=== PATIENT | male | born 1945 | race Caucasian/White ===

== ENCOUNTER 2016-02-15 17:16 | Emergency (ER) | payer MEDICARE ==
[2016-02-19 09:30] VITALS: BMI 22.2
== END 2016-02-15 19:30 | disposition left against medical advice (07) ==
LOC: D.ER 17:16
DX: R30.0 Dysuria (principal)

== ENCOUNTER 2016-02-17 14:54 | Observation (INO) | payer MEDICARE ==
[~2016-02-17] VITALS: Ht 177.8 cm; Wt 69.1 kg
[2016-02-17 15:51] LABS: BASOPHILS 0.1 % (0.0-2.0); HEMOGLOBIN 12.6 g/dL (13.5-17.5); IMMATURE GRANULOCYTES 0.4 % (0-5); LYMPHOCYTES 15.2 % (15-50); MCH 32.1 pg (26.0-34.0); MCHC 34.1 g/dL (31.0-37.0); MCV 94.1 fL (80.0-100.0); MEAN PLATELET VOLUME 9.4 fL (7.4-10.4); MONOCYTES 7.9 % (2-11); NEUTROPHILS 75.4 % (40-80); PLATELET COUNT 156 10x3/uL (130-400); RBC 3.93 10x6/uL (4.20-6.10); RDW 12.9 % (11.5-14.5); WBC 8.3 10x3/uL (4.8-10.8)
[2016-02-17 16:04] LABS: UDS - AMPHET NEGATIVE QUAL (NEGATIVE); UDS - BARB NEGATIVE QUAL (NEGATIVE); UDS - BENZO NEGATIVE QUAL (NEGATIVE); UDS - COCAINE NEGATIVE QUAL (NEGATIVE); UDS - METH NEGATIVE QUAL (NEGATIVE); UDS - OPIATE NEGATIVE QUAL (NEGATIVE); UDS - PCP NEGATIVE QUAL (NEGATIVE); UDS - THC NEGATIVE QUAL (NEGATIVE)
[2016-02-17 16:17] LABS: ALBUMIN 4.1 g/dL (3.4-5.0); ANION GAP 12.8 mmol/L (8-16); BILIRUBIN - TOTAL 0.67 mg/dL (0.2-1.3); CALCIUM 9.1 mg/dL (8.5-10.1); CARBON DIOXIDE 29.7 mmol/L (21.0-32.0); CREATININE - SERUM 2.1 mg/dL (0.6-1.3); POTASSIUM - SERUM 4.5 mmol/L (3.5-5.1); PROTEIN - SERUM 6.4 g/dL (6.4-8.2)
[2016-02-17 17:21] LABS: COLOR YELLOW (YELLOW)
[2016-02-17 17:22] LABS: APPEARANCE CLEAR (CLEAR); BILIRUBIN NEGATIVE (NEGATIVE); GLUCOSE NEGATIVE (NEGATIVE); KETONE NEGATIVE (NEGATIVE); LEUKOCYTE ESTERASE NEGATIVE (NEGATIVE); NITRITE NEGATIVE (NEGATIVE); PROTEIN TRACE mg/dL (NEGATIVE); UROBILINOGEN NORMAL (NORMAL)
[2016-02-17 19:53] LABS: ANION GAP 11.1 mmol/L (8-16); CALCIUM 8.6 mg/dL (8.5-10.1); CARBON DIOXIDE 29.1 mmol/L (21.0-32.0); CREATININE - SERUM 1.8 mg/dL (0.6-1.3); POTASSIUM - SERUM 4.2 mmol/L (3.5-5.1)
[2016-02-17 23:30] VITALS: BP 101/68; BP 102/74; Ht 177.8 cm; Wt 69.1 kg
--- NOTE | 2016-02-17 23:30 | NUR ---
PT REC'D TO ROOM 2305 VIA WHEELCHAIR FROM ER, AWAKE, ALERT, ORIENTED X 4, O2 @ 2LITERS VIA NC, LEFT A/C PIV WITH NS @ 100CC/HR, LEFT ELBOW WITH SCAB/SORE AREA, BANDAID APPLIED, PT MAEE, CM-SR, BP STABLE, WILL MONITOR CLOSELY FOR CHANGES, SR UP X 2, CALL LIGHT IN REACH.
[2016-02-17] MEDS ORDERED: PROGRAF0.5 M1 PO (23:31)
[2016-02-17] MEDS ORDERED: K-TAB10 MEQ PO (23:32)
[2016-02-17] MEDS ORDERED: FLORINEF 0.1 M0.1 MG PO ×2 (23:33→23:39)
[2016-02-17] MEDS ORDERED: VALTREX500 MG PO (23:33)
[2016-02-17] MEDS ORDERED: MIDODRINE HCL5 MG PO (23:33)
[2016-02-17] MEDS ORDERED: MYFORTIC180 MG PO (23:34)
[2016-02-17] MEDS ORDERED: EVOXAC30 MG PO (23:34)
[2016-02-17] MEDS ORDERED: NIASPAN500 MG PO (23:35)
[2016-02-17] MEDS ORDERED: TYLENOL PM1 TAB PO (23:36)
[2016-02-17] MEDS ORDERED: COLACE100 MG PO (23:36)
[2016-02-17] MEDS ORDERED: CALCIUM 500 + D1 TAB PO (23:37)
[2016-02-17] MEDS ORDERED: MULTIPLE VITAMI1 TA1 PO (23:37)
[2016-02-17] MEDS ORDERED: LIDODERM 5 %1 PATCH TRANSDERM (23:38)
[2016-02-17 23:45] VITALS: BP 103/71
[2016-02-18] VITALS (23 sets, daily range): BP systolic 73–152; BP diastolic 47–97
--- NOTE | 2016-02-18 | NUR ---
PT REQUESTING SOMETHING TO DRINK, DIET COLA PROVIDED, DENIES FURTHER NEEDS.
--- NOTE | 2016-02-18 02:00 | NUR ---
SBP DECREASED TO 70'S AND 80'S, PT AWAKENS EASILY, CM-SR @ 79, WILL MONITOR CLOSELY FOR CHANGES.
--- NOTE | 2016-02-18 03:00 | NUR ---
PT ASSISTED UP TO BSC VOIDED AND HAD LIQUID BM, ADULT BRIEF PROVIDED, PT DENIES PAIN OR OTHER NEEDS.
--- NOTE | 2016-02-18 05:00 | NUR ---
PT ASSISTED UP TO BSC PT HAD SMALL LOOSE BROWN STOOL, PT ASSISTED BACK TO BED, DENIES PAIN OR NEEDS, SR UP X 2, CALL LIGHT IN REACH.
[2016-02-18 05:42] LABS: BASOPHILS 0.2 % (0.0-2.0); EOSINOPHILS 1.6 % (0-7); HEMATOCRIT 32.9 % (42.0-54.0); HEMOGLOBIN 11.1 g/dL (13.5-17.5); LYMPHOCYTES 25.1 % (15-50); MCH 32.4 pg (26.0-34.0); MCHC 33.7 g/dL (31.0-37.0); MCV 95.9 fL (80.0-100.0); MEAN PLATELET VOLUME 9.3 fL (7.4-10.4); NEUTROPHILS 61.1 % (40-80); RBC 3.43 10x6/uL (4.20-6.10); RDW 13.2 % (11.5-14.5)
[2016-02-18 05:59] LABS: PLATELET COUNT 108 10x3/uL (130-400); WBC 5.7 10x3/uL (4.8-10.8)
[2016-02-18 06:22] LABS: ANION GAP 12.6 mmol/L (8-16); CALCIUM 8.4 mg/dL (8.5-10.1); CARBON DIOXIDE 25.6 mmol/L (21.0-32.0); CREATININE - SERUM 1.6 mg/dL (0.6-1.3); POTASSIUM - SERUM 4.2 mmol/L (3.5-5.1)
--- NOTE | 2016-02-18 06:30 | NUR ---
DR. BOYD ON UNIT, NEW ORDERS REC'D.
[2016-02-18 07:25] LABS: ALBUMIN 3.3 g/dL (3.4-5.0); BILIRUBIN - TOTAL 0.39 mg/dL (0.2-1.3); PROTEIN - SERUM 5.6 g/dL (6.4-8.2)
--- NOTE | 2016-02-18 08:00 | NUR ---
SHIFT ASSESSMENT VIA FLOWSHEET, SEE FOR DETAILS.
--- NOTE | 2016-02-18 08:39 | NUR ---
Is the patient Alert and Oriented? Yes 0 * How many steps to enter\exit or inside your home? 1 0 * PCP DR. WEISS 0 * Pharmacy [facility] [place] * Preadmission Environment Home with Family 0 * ADLs Independent 0 * Equipment Rolling Walker 0 * List name and contact numbers for known caregivers / representatives who currently or will assist patient after discharge: SPOUSE: ALVIN [phone] * Community resources currently utilized None 0 * Additional services required to return to the preadmission environment? Yes 0 * Can the patient safely return to the preadmission environment? No 0 * Has this patient been hospitalized within the prior 30 days at any hospital? No PATIENT IS ADMITTED TO THE ICU POST SUICIDAL GESTURE. HE TOOK GABAPENTIN IN ATTEMPT TO KILL HIMSELF. PATIENT STATES HE IS AGREEABLE TO GO TO CARE. HE STATES HE HAS TO HAVE A BLOOD TEST ON MONDAY RELATED TO HIS PREVIOUS LIVER TRANSPLANT. PATIENT STATES HE LIVES AT HOME WITH HIS , ALVIN. HIS PCP IS DR. WEISS. HE GET[place] [facility] [place]. PATIENT STATES HE HAS A WALKER HE USES OCCASIONALLY. HE HAD HOME HEALTH IN THE PAST FROM [facility]. PATIENT DENIES ANY DISCHARGE NEEDS. WILL AWAIT EVAL FROM CARE.
--- NOTE | 2016-02-18 09:30 | NUR ---
HAS TAKEN PT BELONGINGS HOME.
--- NOTE | 2016-02-18 13:00 | NUR ---
DISCHARGE TEACHING PROVIDED TO PT. AWAITING ROOM ASSIGNMENT FOR TRANSFER TO [facility].
--- NOTE | 2016-02-18 13:54 | NUR ---
REPORT CALLED TO NARENDRA IN DETENTION.
--- NOTE | 2016-02-18 14:50 | NUR ---
PT TO [facility] VIA WHEELCHAIR.
[2016-02-18] MEDS ORDERED: TYLENOL PM1 TAB PO (15:57)
[2016-02-19] MEDS ORDERED: K-TAB10 MEQ PO (10:59)
[2016-02-19] MEDS ORDERED: ZOLOFT50 MG PO (13:39)
== END 2016-02-18 14:50 | disposition short-term general hospital (02) ==
LOC: D.ER 14:54 → OBSVTIME 18:31 → D.ICU 18:31
PROVIDERS: Emergency Medicine Emergency Medical Services; Nurse Practitioner Family; ADMIT Family Medicine
DX: T42.6X2A Poisoning by other antiepileptic and sedative-hypnotic drugs, intentional self-harm, initial encounter (principal); F32.9 Major depressive disorder, single episode, unspecified; I95.9 Hypotension, unspecified; E86.0 Dehydration; Z94.4 Liver transplant status; Z87.891 Personal history of nicotine dependence

== ENCOUNTER 2016-02-18 15:26 | Inpatient (IN) | payer MEDICARE ==
[~2016-02-18] VITALS: Ht 177.8 cm; Wt 70.3 kg
--- NOTE | 2016-02-18 15:15 | NUR ---
Patient brought to Detention from ICU, apparently patient took an overdose of his gabapentin and he became lethargic, spouse called EMS and he was brought to the E.D. and there he was admitted to ICU. Patient is alert and oriented and he does admit to being depressed. He denies S.I. 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 Patient is able to ambulate and make needs known.
[~2016-02-18 15:26] MED LIST: CALCIUM 500 + D1 TAB PO; COLACE100 MG PO; EVOXAC30 MG PO; FLORINEF 0.1 M0.1 MG PO; K-TAB10 MEQ PO; LIDODERM 5 %1 PATCH TRANSDERM; MIDODRINE HCL5 MG PO; MULTIPLE VITAMI1 TA1 PO; MYFORTIC180 MG PO; NIASPAN500 MG PO; PROGRAF0.5 M1 PO; TYLENOL PM1 TAB PO; VALTREX500 MG PO
[2016-02-18] MEDS ORDERED: TYLENOL PM1 TAB PO (15:57)
[2016-02-18 16:03] VITALS: BP 112/78; BMI 22.2
--- NOTE | 2016-02-18 16:41 | NUR ---
PT WAS ADMITTED TO [facility] FROM ICU AFTER AN ATTEMPTED SUICIDE BY OVERDOSE. CODE WORD IS "MARYSE" PER SPOUSE. PT HAS UNSTEADY GAIT BUT IS AMBULATORY. BELONGING'S SHEET COMPLETED. FALL PRECAUTIONS INITIATED. WILL CONTINUE TO MONITOR.
[2016-02-18 17:30] LABS: HEMOGLOBIN A1C 4.7 % (4.8-6.0)
[2016-02-18 17:35] LABS: CHOL - HDL RATIO 3.7 ratio (2.3-4.9); LDL-HDL RATIO 2.1 ratio (1.5-3.5)
[2016-02-18 19:30] VITALS: BP 137/83
--- NOTE | 2016-02-18 21:30 | NUR ---
RECEIVED IN DAYROOM SITTING ON SOFA QUIETLY. HE DOES AMBULATE INDEPENDENTLY. CALM AND COOPERATIVE WITH ASSESSMENT AND CARE. NO MEDICATIONS ORDERED, WILL NOTIFY DR. HEATH. CONTINUE WITH PLAN OF CARE AND MONITOR FOR SAFETY.
--- NOTE | 2016-02-18 23:30 | NUR ---
ADMINISTERED MEDICATIONS AFTER TRACK SURFACING MACHINE OPERATOR BROUGHT TO UNIT. COMPLIANT WITH TAKING MEDICATIONS.
[2016-02-19 07:53] VITALS: BP 127/74
[2016-02-19 09:30] VITALS: Ht 177.8 cm; Wt 70.3 kg
[2016-02-19] MEDS ORDERED: K-TAB10 MEQ PO (10:59)
[2016-02-19] MEDS ORDERED: ZOLOFT50 MG PO (13:39)
--- NOTE | 2016-02-19 18:19 | NUR ---
B.) Alert and oriented times four, pleasant and cooperative. I.) Administer medications and monitor compliance. Monitor for any suicidal ideations. Provide one on one time to educate on positive coping skills. R.) Compliant with medications, contracted for safety. " I don't belong here, I really want to know why I did that, better talking one on one with a Psychiatrist." Patient has had one on one with MD, social security benefits interviewer, director of business systems and nurse. Verbalized understanding of better coping mechanisms, has been social with other patients and participated in group. P.) Continue plan of care.
[2016-02-19 19:55] VITALS: BP 173/96
--- NOTE | 2016-02-20 00:11 | NUR ---
B) Recieved sitting in the day room watching TV, alert and oriented X 4, calm and cooperative with staff, no SI, I) Administered perscribed medication, contracted for safety, redirected and oriented as needed, R) Medication compliant, resting quietly now in bed P) Continue plan of care, continue to monitor.
--- NOTE | 2016-02-20 08:13 | NUR ---
B) Patient is awake and alert and oriented x3, he is saying "I have to take my meds before I eat". Looked at med list and let him know it is scheduled at 9 am, but that I will be able to get him his meds soon and for him to not eat until I get the meds to him. He said "Ok". Patient ambulates independently, he is going home today. Patient denies S.I., and he has said he feels stupid for doing such a thing. He remains quite depressed, flat to blunted affect. I) Provide prescribed med. R) Patient is compliant with meds and unit milieu. P) Continue working on d/c plan.
[2016-02-20 09:27] VITALS: BP 90/64
--- NOTE | 2016-02-20 14:51 | NUR ---
Patient is packed, attempted to fax paperwork to Dr. Cisneros, but their fax machine is not accepting faxes at this time. Did go over sertraline and did [place] to [facility] [place]. Explained to spouse and patient about seeing the psychiatrists and primary care physician. Patient and spouse verbalized understanding. Patient ambulated to the car and patient is d/c'd home now.
--- NOTE | 2016-02-22 14:45 | PSY ---
PATIENT NAME:CUATE THOMAS MEDICAL RECORD: [id number] : 49 LOCATION:[id number] ADMISSION DATE: 02/18/16 ACCOUNT: [id number] PSYCHIATRIC EVALUATION DATE OF EVALUATION: 02/19/16 Psychiatric Evaluation IDENTIFYING DATA: The patient is 70 years old and he is admitted to the hospital on a voluntary basis. CHIEF COMPLAINT: Depression. HISTORY OF PRESENT ILLNESS: The patient is a very nice man who took an overdose. He took a large amount of Neurontin with the intention of killing himself. He did not tell his he was going to do this. He did not tell anyone else and he did not leave a suicide note. The patient slept more than 12 hours after having taken this overdose and his was concerned about how long he had been asleep and so she woke him up to ask him if he was alright and it was at this point, he admitted that he had taken an overdose. He says that from the moment he woke up and told her what he had done, he regretted doing it and he says he would not do it again. He says he has never done anything like this. He says he did it impulsively that he had not been thinking about it for a long time, but he has been depressed for a long time and was thinking about starting to see a psychiatrist. He denies that he would seek to harm himself currently. He denies substance abuse issues, although he has been in the past. He admits that the stress of having such poor health was a motivating factor, but then he now says that he loves his current very much and would not hurt himself. PAST MEDICAL HISTORY: Most significant for alcoholic cirrhosis for which the patient stopped drinking in 2007 and has not drank since. He had a liver transplant in 2009 and at this point, the liver continues to function properly. He also had a recent bout with throat cancer has some pain and dryness because of the radiation therapy he took, but apparently the throat cancer is in remission. PAST PSYCHIATRIC HISTORY: Significant for excessive drinking through much of his adult life. Although, he did drink excessively through his adult life, it did not significantly impact his social or occupational functioning. FAMILY HISTORY: Negative for psychiatric disease by his report. ALLERGIES: IODINE. CURRENT MEDICATIONS: Include numerous antirejection drugs, a Lidoderm patch, Florinef, Colace, potassium, calcium, midodrine, Evoxac, and Valtrex. SOCIAL HISTORY: The patient is to his second . They have been for 17 years. He has retired and lives in [place] and ____ enjoyed playing golf regularly. 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 Apparently, he did very well and despite his alcoholism, he still functioned and was able to comfortably retire in his early 50s. He is without children. His first and he did not have children. He his second at an age where he no longer wished to have children. He has no history of legal entanglements. There is a history of alcoholism and again he quit drinking in 2007 and has not drank since. He quit smoking in the year 1999. MENTAL STATUS EXAMINATION: The patient is awake, alert and oriented to person, place, time and situation. His mood is euthymic. His affect appropriate. Thought processes are goal directed. Memory, concentration and abstraction abilities are intact. He denies intent to harm himself or others as well as overt psychotic symptoms. ASSESSMENT: AXIS I: Major depression, single episode, moderate severity without psychotic features. AXIS II: None. AXIS III: Status post liver transplant, status post throat cancer. AXIS IV: Moderate stressors. AXIS V: Global assessment of functioning is 45. PLAN: At this time, the patient is not wanting to be hospitalized. He no longer meets criteria for an involuntary commitment and I do not believe I could hold him against his will. He is willing to take antidepressant medicine and he very much wants to go to outpatient mental health treatment. He is uncomfortable here, feels he does not fit in with the largely demented population and despite efforts to give him individual treatment, he simply says he wants to go home. He does agree to stay another 24 hours to give the nursing staff and other further opportunity to observe any evidence of dangerousness that might contradict this situation, but assuming that there is no new evidence of dangerousness, I will let him go home tomorrow morning. His alf prognosis is guarded and it will depend entirely upon his continuing to follow through with his desire to have mental health follow up. I have made recommendations to our clinical social worker regarding this and she is going to assist him in either making appointments or giving him the information to make the appointment so that after the weekend, he could do so himself. He does agree that if these thoughts return, he would come back to the Emergency Room. TRANSINT:[id number] Voice Confirmation ID: [id number] DOCUMENT ID: [id number] CARMELO MALONEY MD at 1445 CC: [id number] DICTATION DATE: 02/19/16 1347 AIRPLANE ELECTRICIAN: 02/19/16 1425 DIS IN 02/20/16 [place] [id number] [place] [id number]
--- NOTE | 2016-02-25 14:55 | DS ---
PATIENT:CUATE THOMAS :49 MEDICAL RECORD: [id number] DISCHARGE SUMMARY ADMISSION DATE: 02/18/16 DISCHARGE DATE: 02/20/16 IDENTIFYING DATA: The patient is 70 years old and he was admitted to the hospital on a voluntary basis secondary to depression. The patient is a very nice manner took an overdose. He took a large amount of Neurontin and he did it with the intention of killing himself. He did not tell his he had done this. He did not tell anyone else and did not leave a suicide note. The patient slept about 12 hours after taking the overdose. His was concerned about him and woke him up and it was at that point he told her what he had done. He regrets doing it from the moment he woke up. He continued to say that through the course of being brought here for evaluation after the overdose and then sent to the behavioral unit. He says he never done anything like this before. It was purely impulsive and that he has been depressed for a long time primarily about his health. He denies that he would seek to harm himself or others. He indicated that he did not want to be in the hospital, but agreed to at least stay overnight for me to observe him. HOSPITAL COURSE: The patient was admitted to the hospital and evaluated from both a medical, psychological, and social standpoint. He was indeed depressed. I do think this was an isolated event and he was subsequently discharged the next day when there was no evidence of symptoms that would make him a direct danger to himself acutely. DISCHARGE DIAGNOSES: AXIS I: Major depression, single episode, moderate severity without psychotic features. AXIS II: None. AXIS III: Status post liver transplant, status post throat cancer. AXIS IV: Moderate stressors. AXIS V: Global Assessment of Functioning is 45. PLAN: At the time of discharge, the patient was not acutely dangerous to himself or others. He was very interested in outpatient mental health treatment particularly in wanting one-to-one psychotherapy with a psychiatrist. Referrals were made to appropriate facilities and I think his fci prognosis is good assuming he follows through with outpatient treatment recommendations. He did not meet criteria for involuntary commitment and I would have preferred he stay in the hospital longer, but did not feel so strongly about it that I would discharge him flatly against medical advice because of the problems that can cause him. He indicated that the unit was making him uneasy and nervous, there are a large number of patients with Alzheimer disease, many of whom cannot interact with him and he felt it was an inappropriate place for him to be. His concerns are certainly valid, but at the same time when he was offered transfer to a more appropriate facility, he declined it. TRANSINT:[id number] Voice Confirmation ID: [id number] DOCUMENT ID: [id number] DISCHARGE SUMMARY REPORT [id number] CUATE THOMAS PETER MD at 1455 CC: [id number] DICTATION DATE: 02/24/16 1252 MATHEMATICAL SCIENCES PROFESSOR: 02/24/16 1313 DIS IN 02/20/16 [facility] [address] [place] [address]
== END 2016-02-20 14:52 | disposition home or self-care (01) | DRG 885 ==
LOC: D.PSYCH 15:26
PROVIDERS: ADMIT Psychiatry & Neurology Psychiatry
DX: F32.1 Major depressive disorder, single episode, moderate (principal); Z94.4 Liver transplant status; Z87.891 Personal history of nicotine dependence; Z85.89 Personal history of malignant neoplasm of other organs and systems; K70.30 Alcoholic cirrhosis of liver without ascites

== ENCOUNTER 2016-04-04 16:31 | Emergency (ER) | payer MEDICARE ==
[2016-02-19 09:30] VITALS: BMI 22.2
[~2016-04-04 16:31] MED LIST changes: +ZOLOFT50 MG PO
[2016-04-04 18:29] LABS: APPEARANCE HAZY (CLEAR); BACTERIA MODERATE /hpf (NONE SEEN); BILIRUBIN NEGATIVE (NEGATIVE); COLOR STRAW (YELLOW); EPITHELIAL CELLS 0-5 /hpf (0-5); GLUCOSE NEGATIVE (NEGATIVE); KETONE NEGATIVE (NEGATIVE); LEUKOCYTE ESTERASE 1+ (NEGATIVE); NITRITE NEGATIVE (NEGATIVE); PROTEIN NEGATIVE (NEGATIVE); UROBILINOGEN NORMAL (NORMAL)
== END 2016-04-04 18:33 | disposition home or self-care (01) ==
LOC: D.ER 16:31
PROVIDERS: Physician Assistant
DX: R33.9 Retention of urine, unspecified (principal); N40.0 Benign prostatic hyperplasia without lower urinary tract symptoms; B25.9 Cytomegaloviral disease, unspecified; E87.1 Hypo-osmolality and hyponatremia; I95.9 Hypotension, unspecified; Z94.4 Liver transplant status; C14.0 Malignant neoplasm of pharynx, unspecified; F17.200 Nicotine dependence, unspecified, uncomplicated

== ENCOUNTER 2016-05-30 15:34 | Emergency (ER) | payer MEDICARE ==
[2016-02-19 09:30] VITALS: BMI 22.2
[2016-05-30 17:27] LABS: BASOPHILS 0.3 % (0.0-2.0); EOSINOPHILS 1.6 % (0-7); HEMATOCRIT 33.8 % (42.0-54.0); HEMOGLOBIN 12.3 g/dL (13.5-17.5); IMMATURE GRANULOCYTES 0.2 % (0-5); LYMPHOCYTES 17.6 % (15-50); MCHC 36.4 g/dL (31.0-37.0); MCV 93.4 fL (80.0-100.0); MEAN PLATELET VOLUME 8.9 fL (7.4-10.4); MONOCYTES 8.8 % (2-11); NEUTROPHILS 71.5 % (40-80); RBC 3.62 10x6/uL (4.20-6.10); RDW 13.2 % (11.5-14.5); WBC 10.5 10x3/uL (4.8-10.8)
[2016-05-30 17:35] LABS: INR 1.02 (0.85-1.17); PROTIME 13.2 SECONDS (11.6-15.0)
[2016-05-30 17:39] LABS: PLATELET COUNT 175 10x3/uL (130-400)
[2016-05-30 17:42] LABS: ALBUMIN 4.2 g/dL (3.4-5.0); ANION GAP 12.7 mmol/L (8-16); BILIRUBIN - TOTAL 0.6 mg/dL (0.2-1.3); CALCIUM 9.8 mg/dL (8.5-10.1); CARBON DIOXIDE 31.6 mmol/L (21.0-32.0); CREATININE - SERUM 1.4 mg/dL (0.6-1.3); POTASSIUM - SERUM 3.3 mmol/L (3.5-5.1); PROTEIN - SERUM 6.8 g/dL (6.4-8.2)
[2016-05-30 18:01] LABS: APPEARANCE CLEAR (CLEAR); BILIRUBIN NEGATIVE (NEGATIVE); COLOR YELLOW (YELLOW); GLUCOSE NEGATIVE (NEGATIVE); KETONE NEGATIVE (NEGATIVE); LEUKOCYTE ESTERASE 1+ (NEGATIVE); NITRITE NEGATIVE (NEGATIVE); PROTEIN NEGATIVE (NEGATIVE); UROBILINOGEN NORMAL (NORMAL)
[2016-05-30 18:02] LABS: RED CELLS - URINE 0-5 /hpf (0-5)
[2016-05-30 18:03] LABS: BACTERIA FEW /hpf (NONE SEEN)
== END 2016-05-30 18:33 | disposition home or self-care (01) ==
LOC: D.ER 15:34
PROVIDERS: Nurse Practitioner Family
DX: N39.0 Urinary tract infection, site not specified (principal); R33.9 Retention of urine, unspecified